=== PATIENT | male | born 1975 | race Caucasian/White ===

== ENCOUNTER 2017-01-22 09:55 | Emergency (ER) | payer MEDICAID, OTHER ==
[2017-01-22 09:55] VITALS: BMI 20.6
[2017-01-22 10:04] VITALS: BP 119/68; PULSE 67; RESP 18; TEMP 97.7; O2SAT 100
--- NOTE | 2017-01-22 10:09 | C.PDOC ---
History Of Present Illness Pt c/o lesion on his right lower eyelid. Time Seen by Provider: 01/22/17 10:06 Chief Complaint (Nursing): Eye Problem History Per: Patient, Family Onset/Duration Of Symptoms: Days (4), Gradual Current Symptoms Are (Timing): Still Present Injury To Eye?: No Severity: Moderate Quality: "Pain" Wears Contact Lens?: No Additional History Per: Prior Records Past Medical History Reviewed: Historical Data, Nursing Documentation, Vital Signs Vital Signs: Last Vital Signs Temp 97.7 F 01/22/17 10:02 Pulse 67 01/22/17 10:02 Resp 18 01/22/17 10:02 BP 119/68 01/22/17 10:02 Pulse Ox 100 01/22/17 10:09 - Medical History PMH: Seizures Surgical History: Back Surgery Family History: States: Unknown Family Hx - Social History Hx Tobacco Use: No Hx Alcohol Use: No Hx Substance Use: No - Immunization History Hx Tetanus Toxoid Vaccination: Yes Hx Influenza Vaccination: Yes Hx Pneumococcal Vaccination: Yes Review Of Systems Except As Marked, All Systems Reviewed And Found Negative. Constitutional: Negative for: Fever, Weakness Eyes: Positive for: Eyelid Inflammation (right). Negative for: Vision Change Respiratory: Negative for: Cough Gastrointestinal: Negative for: Vomiting Musculoskeletal: Negative for: Neck Pain Skin: Negative for: Rash Neurological: Negative for: Weakness, Numbness, Headache Physical Exam - Physical Exam Appears: Non-toxic, No Acute Distress Skin: Normal Color, Warm, Dry, No Rash Head: Atraumatic, Normacephalic Eye(s): bilateral: PERRL, EOMI, right: Eyelid Inflammation (hordeolum of lower eyelid) Neck: Normal ROM, Supple Lymphatic: No Adenopathy Extremity: Normal ROM, No Deformity Neurological/Psych: Oriented x3, Normal Cranial Nerves, Normal Motor, Normal Sensation ED Course And Treatment O2 Sat by Pulse Oximetry: 100 Pulse Ox Interpretation: Normal Disposition Counseled Patient/Family Regarding: Diagnosis, Need For Followup, Rx Given - Disposition Referrals: Esdras Leigh MD [Staff Provider] - Disposition: HOME/ ROUTINE Disposition Time: 10:21 Condition: STABLE Additional Instructions: Apply warm compresses to the right eye for 5-10 minutes four times a day. Follow up with an Slasher Tender Helper (eye doctor) within 1 week for further evaluation and treatment. Return to the ER if you develop worsening of symptoms or if you have any other concerns. Prescriptions: Bacitracin [Bacitracin Opht OINT] 1 applic OD Q4 #1 tube Instructions: Berto (ED) Print Language: GERMAN - Clinical Impression Clinical Impression: Hordeolum of right lower eyelid
== END 2017-01-22 10:32 | disposition home or self-care (01) ==
LOC: C.ER 09:55
DX: H00.012 Hordeolum externum right lower eyelid (principal)

== ENCOUNTER 2017-11-26 18:11 | Inpatient (IN) | payer OTHER ==
[2017-11-26 18:12] VITALS: BMI 20.6
[2017-11-26] MEDS ORDERED: Sodium Chloride 0.9% 1,000 ML IV ONE (18:21)
--- NOTE | 2017-11-26 18:34 | C.PDOC ---
History Of Present Illness 42 year old male, whose PMHx of seizure (currently taking Keppra and Lamictal) is brought to the ED by EMS for evaluation after having a seizure prior to arrival. As per , patient reportedly had a seizure in his car which lasted 15 minutes. Upon ED arrival, patient found to be in post-ictal state and had another seizure immediately on arriavl to er. Patient was given 2mg Ativan immediately. Additional information limited secondary to patient's critical condition. Time Seen by Provider: 11/26/17 18:21 Chief Complaint (Nursing): Seizure History Per: EMS, Family ( ) History/Exam Limitations: clinical condition Recent Seizure Activity Began: Just Before Arrival Length Of Seizures (Duration): Minutes (15) Additional History Per: EMS, Family Past Medical History Reviewed: Historical Data, Nursing Documentation, Vital Signs Vital Signs: Last Vital Signs Temp 98.7 F 11/27/17 15:29 Pulse 72 11/27/17 20:48 Resp 18 11/27/17 20:48 BP 102/63 11/27/17 20:48 Pulse Ox 98 11/27/17 20:48 - Medical History PMH: Seizures Denies: Chronic Kidney Disease Surgical History: Back Surgery Family History: States: Unknown Family Hx - Social History Hx Tobacco Use: No Hx Alcohol Use: No Hx Substance Use: No - Immunization History Hx Tetanus Toxoid Vaccination: Yes Hx Influenza Vaccination: Yes Hx Pneumococcal Vaccination: Yes Review Of Systems Neurological: Positive for: Seizures ED Course And Treatment - Laboratory Results Result Diagrams: 11/27/17 06:32 11/27/17 06:32 O2 Sat by Pulse Oximetry: 100 (on RA) Pulse Ox Interpretation: Normal Medical Decision Making Medical Decision Making: Progress: Bloodwork, urinalysis, CT Head, CXR, EKG ordered and reviewed. Ativan IVP and IV Fluids administered. repeated seizures. will obs. discussed wit yvette cisse who requests button breaker operator. discuss with dr contreras, who requests keppra load. observed in er. no seizure activy. somulent s/p ativan but easily arousable, able to answer questions. Disposition - Disposition Disposition: HOSPITALIZED Disposition Time: 10:00 Condition: STABLE - Clinical Impression Clinical Impression: Seizure - Scribe Statement The provider has reviewed the documentation as recorded by the Scribe (Thelma Tabor) Provider Attestation: All medical record entries made by the Scribe were at my direction and personally dictated by me. I have reviewed the chart and agree that the record accurately reflects my personal performance of the history, physical exam, medical decision making, and the department course for this patient. I have also personally directed, reviewed, and agree with the discharge instructions and disposition. Decision To Admit - Pt Status Changed To: Hospital Disposition Of: Inpatient - Admit Certification Admit to Inpatient:: After my assessment, the patient will require hospitalization for at least two midnights. This is because of the severity of symptoms shown, intensity of services needed, and/or the medical risk in this patient being treated as an outpatient. - InPatient: Physician Admission Certification: I certify that this patient requires 2 or more midnights of care for the following reason:: reccurent seizures. - . Bed Request Type: Telemetry Admitting Physician: Karl Weeks Patient Diagnosis: Seizure
[2017-11-26] MEDS ORDERED: Sodium Chloride 0.9% 1,000 ML ONE (18:39)
[2017-11-26 18:43] LABS: BASO # 0.1 K/uL (0.0-0.2); BASO % 1.7 % (0.0-2.0); EOS # 0.4 K/uL (0.0-0.7); EOS % 5.4 % (0.0-4.0); HEMOGLOBIN 13.6 g/dL (12.0-18.0); LYMPH # 2.4 K/uL (1.0-4.3); MEAN CELL VOLUME 94.4 fL (80.0-94.0); MEAN CORPUSCULAR HEMOGLOBIN 31.2 pg (27.0-31.0); MONO # 0.5 K/uL (0.0-0.8); MONO % 7.6 % (0.0-10.0); NEUT # 3.4 K/uL (1.8-7.0); NEUT % 50.3 % (50.0-75.0); RBC 4.35 Mil/uL (4.40-5.90); RED CELL DISTRIBUTION WIDTH 13.2 % (11.5-14.5); WHITE BLOOD COUNT 6.7 K/uL (4.8-10.8)
[2017-11-26 18:55] LABS: ALB/GLOB RATIO 1.5 (1.0-2.1); ALBUMIN 4.5 g/dL (3.5-5.0); ALT/SGPT 27 U/L (21-72); AST/SGOT 27 U/L (17-59); BLOOD UREA NITROGEN 19 mg/dL (9-20); GFR AFRICAN-AMERICAN > 60; GFR NON-AFRICAN AMERICAN > 60
--- NOTE | 2017-11-26 19:40 | CT ---
EXAM: CT Head Without Intravenous Contrast CLINICAL HISTORY: 42 years old, male; Signs and symptoms; Other: Seizure TECHNIQUE: Axial computed tomography images of the head/brain without intravenous contrast. All CT scans at this facility use one or more dose reduction techniques, viz.: automated exposure control; ma/kV adjustment per patient size (including targeted exams where dose is matched to indication; i.e. head); or iterative reconstruction technique. COMPARISON: No relevant prior studies available. FINDINGS: Brain: No hemorrhage. No significant white matter disease. No edema. Ventricles: No hydrocephalus. Bones/joints: Skull is intact. Soft tissues: No acute abnormality as visualized. Sinuses: Partial visualization of moderate frontoethmoid sinus disease. Mastoid air cells: No mastoid effusion. IMPRESSION: No CT evidence of acute intracranial abnormality. Partial visualization of moderate frontoethmoid sinus disease.
[2017-11-26 20:02] LABS: URINE BACTERIA RARE (<OCC); URINE BILIRUBIN NEGATIVE (NEGATIVE); URINE BLOOD 1+ (NEGATIVE); URINE CLARITY Clear (Clear); URINE COLOR Yellow (YELLOW); URINE GLUCOSE (UA) NORMAL (Normal); URINE HYALINE CAST 0-2 /lpf (0-2); URINE LEUKOCYTE ESTERASE NEG Leu/uL (Negative); URINE PROTEIN 1+ mg/dL (NEGATIVE); URINE UROBILINOGEN NORMAL mg/dL (0.2-1.0)
[2017-11-26 20:27] LABS: BARBITURATES, UR NEGATIVE (NEGATIVE); BENZODIAZEPINES, UR NEGATIVE (NEGATIVE); OPIATES, UR NEGATIVE (NEGATIVE); PHENCYCLIDINE, UR NEGATIVE (NEGATIVE)
[2017-11-27 06:35] LABS: BASO # 0.1 K/uL (0.0-0.2); BASO % 0.6 % (0.0-2.0); EOS # 0.2 K/uL (0.0-0.7); EOS % 1.9 % (0.0-4.0); HEMOGLOBIN 13.1 g/dL (12.0-18.0); LYMPH # 1.2 K/uL (1.0-4.3); LYMPH % 10.4 % (20.0-40.0); MEAN CORPUSCULAR HEMOGLOBIN 31.1 pg (27.0-31.0); MEAN CORPUSCULAR HGB CONC 33.5 g/dL (33.0-37.0); MEAN PLATELET VOLUME 7.7 fL (7.2-11.7); MONO # 0.9 K/uL (0.0-0.8); MONO % 7.8 % (0.0-10.0); NEUT # 9.3 K/uL (1.8-7.0); NEUT % 79.3 % (50.0-75.0); RBC 4.22 Mil/uL (4.40-5.90); RED CELL DISTRIBUTION WIDTH 13.1 % (11.5-14.5); WHITE BLOOD COUNT 11.7 K/uL (4.8-10.8)
[2017-11-27 06:52] LABS: ALB/GLOB RATIO 1.4 (1.0-2.1); ALT/SGPT 27 U/L (21-72); AST/SGOT 27 U/L (17-59); BLOOD UREA NITROGEN 13 mg/dL (9-20); CALCIUM 8.9 mg/dl (8.6-10.4); GFR AFRICAN-AMERICAN > 60; GFR NON-AFRICAN AMERICAN > 60; HDL CHOLESTEROL 59 mg/dL (30-70)
[2017-11-27 07:02] LABS: LDL CHOLESTEROL 137 mg/dL (0-129)
--- NOTE | 2017-11-27 08:33 | CP.PCM.PN ---
Subjective - Date & Time of Evaluation Date of Evaluation: 11/27/17 Time of Evaluation: 08:40 - Subjective Subjective: H&P dictated #[id number] Objective - Vital Signs/Intake and Output Vital Signs (last 24 hours): Temp Pulse Resp BP Pulse Ox 97.6 F 73 20 100/57 L 96 11/27/17 04:57 11/27/17 04:57 11/27/17 04:57 11/27/17 04:57 11/27/17 04:57 Intake and Output: 11/27/17 11/27/17 06:59 18:59 Intake Total 0 Output Total 200 Balance -200 - Medications Medications: Current Medications Lamotrigine (Lamictal) 200 mg PO TID TASHIA Levetiracetam (Keppra) 500 mg PO BID TASHIA - Labs Labs: 11/27/17 06:32 11/27/17 06:32 PT 11.0 SECONDS (9.7-12.2) 11/26/17 18:37 INR 1.0 11/26/17 18:37 APTT 33 SECONDS (21-34) 11/26/17 18:37
--- NOTE | 2017-11-27 08:54 | RAD ---
PROCEDURE: CHEST RADIOGRAPH, 1 VIEW HISTORY: Seizure COMPARISON: Obstructive series [id number]. FINDINGS: LUNGS: History volume appears somewhat diminished but there is no acute infiltrate identified bilaterally. Bronchovascular markings are mildly crowded at both bases. PLEURA: No pneumothorax or pleural fluid seen. CARDIOVASCULAR: Increase in volume of the cardiac silhouette may be a function of technical magnification given portable technique. Clinically correlate. No pulmonary vascular derangement. OSSEOUS STRUCTURES: No significant abnormalities. VISUALIZED UPPER ABDOMEN: Normal. OTHER FINDINGS: None. IMPRESSION: No acute infiltrate effusion or pneumothorax bilaterally. No pulmonary vascular congestion. Cardiac size indeterminate.
[2017-11-27] MEDS ORDERED: Enoxaparin 40 mg Syringe SC SCH (10:00)
--- NOTE | 2017-11-27 14:24 | HP ---
CHIEF COMPLAINT: The patient had witnessed tonic-clonic seizures while he was shopping outside. HISTORY OF PRESENT ILLNESS: Mr. Elizalde is a 42-year-old male with past medical history of seizure disorder diagnosed about 10 years ago, has been following up with as the primary care physician and Dr. Benjamin as neurologist. He has been on epileptic medication. Last seizure activity was about 2 years ago. Has been controlled with Lamictal and Keppra. I came into the ED after the patient had a witnessed seizure and as per the patient's family, he passed out for about 15 minutes having tonic-clonic seizures. Upon arrival to the emergency room, he was in postictal state and had another seizure in the emergency room and the patient has been admitted for further evaluation. When I examined the patient, he claims that he was shopping while he had this episode and he initially felt dizzy and then he passed out. Usually he loses memory immediately after seizure activity. Denies any other headache, dizziness. Denies any chest pain, shortness of breath, or wheezing. Denies any nausea, vomiting, abdominal pain, diarrhea, or constipation. Denies any urinary complaints. Denies any leg pains or leg cramps. Denies any other neurologic symptoms. PAST MEDICAL HISTORY: Seizure disorder for 10 years. PAST SURGICAL HISTORY: Denies any past surgical history. FAMILY HISTORY: Diabetes mellitus in the family. PERSONAL HISTORY: He is single, living with a partner, having one child. Works for a [employer]. SOCIAL HISTORY: Denies smoking, alcohol, or drug abuse. ALLERGIES: NO KNOWN DRUG ALLERGIES. MEDICATIONS: Include Keppra 500 mg p.o. b.i.d., Lamictal 200 mg p.o. t.i.d. REVIEW OF SYSTEMS: As described in history of present illness. All other systems reviewed and were found to be negative. PHYSICAL EXAMINATION: GENERAL: Young male, lying in bed, in no acute distress. VITAL SIGNS: Blood pressure 100/57, pulse 73, respirations 20, temperature 97.6 degrees Fahrenheit, O2 saturation 96% on room air. HEENT: Pupils equal, round, and reacting to light and accommodation. Extraocular muscles intact. No icterus. No pallor. No oral thrush. No pharyngeal congestion. NECK: Supple. No JVD. No thyromegaly. CHEST: Moving equally bilaterally on respiration. LUNGS: Bilateral vesicular breath sounds. No wheezing, no rhonchi. CVS: S1, S2 present. Regular. ABDOMEN: Soft, nontender. Bowel sounds present. No guarding. No rigidity. No rebound tenderness noted. TIGHT COOPER: Alert, awake, and oriented x3. No focal deficits noted. EXTREMITIES: No edema. Palpable peripheral pulses. LABORATORY DATA: From ED, WBC 6.7, hemoglobin 13.6, hematocrit 41.1, and platelets 230. Sodium 140, potassium 3.7, chloride 101, bicarb 17, BUN 19, creatinine 1.1, glucose 126. Calcium 9, total bilirubin 1, AST 27, ALT 27, alkaline phosphatase 55. Total protein 7.6, albumin 4.5. Cholesterol 223, LDL 137, HDL 59, TSH 1.31, triglycerides 41. UA: Specific gravity 1.016, pH 5, protein 1+, blood 1+, RBC 4. Urine drug screen negative. Alcohol negative. Chest CT negative for any acute changes. Partial visualization of moderate frontoethmoid sinus disease. Chest x-ray: No acute infiltrate, effusion, or pneumothorax bilaterally. ASSESSMENT AND PLAN: A young male with prior history of epilepsy for the past 10 years, on Lamictal and Keppra with better control, admitted for breakthrough seizures with postictal state. The patient is being admitted for further evaluation and monitoring of seizures. 1. Epilepsy with breakthrough seizures. The patient is being admitted to telemetry. The patient received loading dose of Keppra. We will fall precaution, seizure precaution. Continue with his home medication. We will obtain Neurology evaluation with Dr. Fleming. We will adjust his antiepileptic medication. We will add further recommendations as his clinical course progresses. Yolanda Weeks MD
[2017-11-27 15:32] VITALS: RESP 18; TEMP 98.7
--- NOTE | 2017-11-27 18:45 | CP.PCM.CON ---
History of Present Illness - History of Present Illness History of Present Illness: Mr. Elizalde is a 42-year-old man with epilepsy, who is managed by Dr. Benjamin, and is on Keppra 750 mg TID and Lamictal 200 mg BID, who had two seizures yesterday that responded well to Ativan. He has not had any seizures today. He typically has 2-3 seizure per year. His last seizure was 6 months ago. He is back to baseline now. Has no complaints. Review of Systems - Review of Systems All systems: reviewed and no additional remarkable complaints except Past Patient History - Infectious Disease Hx of Infectious Diseases: None - Past Medical History & Family History Past Medical History?: Yes - Past Social History Smoking Status: Former Smoker - CARDIAC Hx Cardiac Disorders: No Hx Congestive Heart Failure: No Hx Hypercholesterolemia: No Hx Hypertension: No - PULMONARY Hx Chronic Obstructive Pulmonary Disease (COPD): No Hx Pneumonia: No - NEUROLOGICAL HX Cerebrovascular Accident: No - HEENT Hx HEENT Problems: No - RENAL Hx Renal Failure: No - ENDOCRINE/METABOLIC Hx Diabetes Mellitus Type 1: No Hx Diabetes Mellitus Type 2: No Hx Hypothyroidism: No - HEMATOLOGICAL/ONCOLOGICAL Hx Cancer: No - INTEGUMENTARY Hx Dermatological Problems: No - MUSCULOSKELETAL/RHEUMATOLOGICAL Hx Arthritis: No Hx Rheumatoid Arthritis: No - GASTROINTESTINAL Hx Gastroesophageal Reflux: No - GENITOURINARY/GYNECOLOGICAL Hx Genitourinary Disorders: Yes Other/Comment: difficulty urination, and frequency - PSYCHIATRIC Hx Substance Use: No - SURGICAL HISTORY Hx Surgeries: Yes Other/Comment: spinal surgery unspecificed 2013 - ANESTHESIA Hx Anesthesia: Yes Hx Anesthesia Reactions: No Hx Malignant Hyperthermia: No Meds Allergies/Adverse Reactions: Allergies Allergy/AdvReac Type Severity Reaction Status Date / Time No Known Allergies Allergy Verified 07/19/13 18:40 - Medications Medications: Current Medications Enoxaparin Sodium (Lovenox) 40 mg SC DAILY [facility] Last Admin: 11/27/17 10:13 Dose: 40 mg Lamotrigine (Lamictal) 200 mg PO TID [facility] Last Admin: 11/27/17 17:26 Dose: 200 mg Levetiracetam (Keppra) 500 mg PO BID [facility] Last Admin: 11/27/17 17:26 Dose: 500 mg Physical Exam - Constitutional Appears: Well - Head Exam Head Exam: ATRAUMATIC, NORMAL INSPECTION, NORMOCEPHALIC - Eye Exam Eye Exam: EOMI, Normal appearance, PERRL - ENT Exam ENT Exam: Mucous Membranes Moist, Normal Exam - Cardiovascular Exam Cardiovascular Exam: REGULAR RHYTHM - GI/Abdominal Exam GI & Abdominal Exam: Normal Bowel Sounds, Soft. absent: Tenderness - Rectal Exam Rectal Exam: Deferred - Neurological Exam Neurological exam: Alert, CN II-XII Intact, Normal Gait, Oriented x3, Reflexes Normal - Psychiatric Exam Psychiatric exam: Normal Affect, Normal Mood Results - Vital Signs Recent Vital Signs: Last Vital Signs Temp 98.7 F 11/27/17 15:29 Pulse 65 11/27/17 16:00 Resp 18 11/27/17 15:29 BP 96/52 L 11/27/17 15:29 Pulse Ox 98 11/27/17 15:29 - Labs Result Diagrams: 11/27/17 06:32 11/27/17 06:32 Labs: Laboratory Results - last 24 hr 11/26/17 11/26/17 11/26/17 11:54 18:37 18:37 WBC 6.7 RBC 4.35 L Hgb 13.6 Hct 41.1 MCV 94.4 H MCH 31.2 H MCHC 33.0 RDW 13.2 Plt Count 230 MPV 8.0 Neut % (Auto) 50.3 Lymph % (Auto) 35.0 Cottle % (Auto) 7.6 Eos % (Auto) 5.4 H Baso % (Auto) 1.7 Neut # (Auto) 3.4 Lymph # (Auto) 2.4 Cottle # (Auto) 0.5 Eos # (Auto) 0.4 Baso # (Auto) 0.1 PT INR APTT Sodium 140 Potassium 3.7 Chloride 101 Carbon Dioxide 17 L Anion Gap 26 H BUN 19 Creatinine 1.1 Est GFR ( Amer) > 60 Est GFR (Non-Af Amer) > 60 Random Glucose 123 H Calcium 9.0 Total Bilirubin 1.0 AST 27 ALT 27 Alkaline Phosphatase 55 Total Protein 7.6 Albumin 4.5 Globulin 3.1 Albumin/Globulin Ratio 1.5 Triglycerides Cholesterol LDL Cholesterol Direct HDL Cholesterol TSH 3rd Generation Prolactin 10.2 Urine Color Urine Clarity Urine pH Ur Specific [place] Urine Protein Urine Glucose (UA) Urine Ketones Urine Blood Urine Nitrate Urine Bilirubin Urine Urobilinogen Ur Leukocyte Esterase Urine WBC (Auto) Urine RBC (Auto) Urine Bacteria Hyaline Casts Urine Opiates Screen Urine Methadone Screen Ur Barbiturates Screen Phenytoin Ur Phencyclidine Scrn Ur Amphetamines Screen U Benzodiazepines Scrn U Oth Cocaine Metabols U Cannabinoids Screen Alcohol, Quantitative < 10 11/26/17 11/26/17 11/26/17 18:37 18:37 19:48 WBC RBC Hgb Hct MCV MCH MCHC RDW Plt Count MPV Neut % (Auto) Lymph % (Auto) Cottle % (Auto) Eos % (Auto) Baso % (Auto) Neut # (Auto) Lymph # (Auto) Cottle # (Auto) Eos # (Auto) Baso # (Auto) PT 11.0 INR 1.0 APTT 33 Sodium Potassium Chloride Carbon Dioxide Anion Gap BUN Creatinine Est GFR ( Amer) Est GFR (Non-Af Amer) Random Glucose Calcium Total Bilirubin AST ALT Alkaline Phosphatase Total Protein Albumin Globulin Albumin/Globulin Ratio Triglycerides Cholesterol LDL Cholesterol Direct HDL Cholesterol TSH 3rd Generation Prolactin Urine Color Yellow Urine Clarity Clear Urine pH 5.0 Ur Specific [place]el[place] 1.016 Urine Protein 1+ H Urine Glucose (UA) Normal Urine Ketones Negative Urine Blood 1+ H Urine Nitrate Negative Urine Bilirubin Negative Urine Urobilinogen Normal Ur Leukocyte Esterase Neg Urine WBC (Auto) 1 Urine RBC (Auto) 4 H Urine Bacteria Rare Hyaline Casts 0-2 Urine Opiates Screen Urine Methadone Screen Ur Barbiturates Screen Phenytoin < 3.0 L Ur Phencyclidine Scrn Ur Amphetamines Screen U Benzodiazepines Scrn U Oth Cocaine Metabols U Cannabinoids Screen Alcohol, Quantitative 11/26/17 11/27/17 11/27/17 19:48 06:32 06:32 WBC 11.7 H D RBC 4.22 L Hgb 13.1 Hct 39.2 MCV 93.0 MCH 31.1 H MCHC 33.5 RDW 13.1 Plt Count 212 MPV 7.7 Neut % (Auto) 79.3 H Lymph % (Auto) 10.4 L Cottle % (Auto) 7.8 Eos % (Auto) 1.9 Baso % (Auto) 0.6 Neut # (Auto) 9.3 H Lymph # (Auto) 1.2 Cottle # (Auto) 0.9 H Eos # (Auto) 0.2 Baso # (Auto) 0.1 PT INR APTT Sodium 141 Potassium 4.0 Chloride 103 Carbon Dioxide 28 Anion Gap 14 BUN 13 Creatinine 0.9 Est GFR ( Amer) > 60 Est GFR (Non-Af Amer) > 60 Random Glucose 90 Calcium 8.9 Total Bilirubin 1.0 AST 27 ALT 27 Alkaline Phosphatase 49 Total Protein 7.0 Albumin 4.0 Globulin 2.9 Albumin/Globulin Ratio 1.4 Triglycerides 41 Cholesterol 223 H LDL Cholesterol Direct 137 H HDL Cholesterol 59 TSH 3rd Generation 1.31 Prolactin Urine Color Urine Clarity Urine pH Ur Specific [place] Urine Protein Urine Glucose (UA) Urine Ketones Urine Blood Urine Nitrate Urine Bilirubin Urine Urobilinogen Ur Leukocyte Esterase Urine WBC (Auto) Urine RBC (Auto) Urine Bacteria Hyaline Casts Urine Opiates Screen Negative Urine Methadone Screen Negative Ur Barbiturates Screen Negative Phenytoin Ur Phencyclidine Scrn Negative Ur Amphetamines Screen Negative U Benzodiazepines Scrn Negative U Oth Cocaine Metabols Negative U Cannabinoids Screen Negative Alcohol, Quantitative Assessment & Plan (1) Seizure Assessment and Plan: Continue current dosing of Keppra per Dr. Benjamin and follow up with him as an outpatient. No further recommendations at this time. Thank you. Status: Acute Priority: Medium
[2017-11-27 20:49] VITALS: BP 102/63; PULSE 72
[2017-11-29 08:45] VITALS: O2SAT 100
== END 2017-11-27 22:22 | disposition home or self-care (01) | DRG 890 ==
LOC: C.ER 18:11 → C.9E 19:56 → C.6T 19:56
PROVIDERS: ADMIT Internal Medicine; ATTEND Internal Medicine
DX: G40.909 Epilepsy, unspecified, not intractable, without status epilepticus (principal); Z87.891 Personal history of nicotine dependence